=== PATIENT | male | born 1970 | race Hispanic/Latino ===

== ENCOUNTER 2020-11-18 22:39 | Emergency (ER) | payer SELFPAY ==
[~2020-11-18] VITALS: Ht 180.3 cm; Wt 109.3 kg
[2020-11-18] MEDS ORDERED: TETRACAINE HCL 0.5% OPTH SOLN 4 ML BTL OP ONE (23:30)
[2020-11-18] MEDS ORDERED: FLUORESCEIN SOD(OPTH) 1 MG STRP OP ONE (23:30)
[2020-11-18] MEDS ORDERED: TOBRAMYCIN/DEXAMETHASONE(OPTH) 3.5 GM TUBE OP ONE (23:30)
[2020-11-18] MEDS ORDERED: TOBRAMYCIN 0.3% OPTH OINT 3.5 GM TUBE ONE (23:41)
[2020-11-18] MEDS ORDERED: EYE IRRIGATION (OPTH) 120 ML BTL OP ONE (23:45)
[2020-11-18] MEDS ORDERED: EYE IRRIGATION (OPTH) 120 ML BTL ONE (23:46)
== END 2020-11-19 00:01 | disposition home or self-care (01) ==
LOC: EDBD 22:39 → ER 23:02
DX: T15.91XA Foreign body on external eye, part unspecified, right eye, initial encounter (principal)
CPT/HCPCS: 99283